=== PATIENT | female | born 1985 | race Caucasian/White ===

== ENCOUNTER → 2017-11-03 | Outpatient (CLI) | payer BC ==
[~2017-11-03] MED LIST: ALLEGRA180 MG PO; ALLEGRA60 M1 PO; AMOXICILLIN500 MG PO; ATIVAN0.5 MG PO; CIPRO250 MG PO; CLARITIN10 MG PO; MEDROL DOSEPAK4 MG PO; MOTRIN PO; MOTRIN800 MG PO; PRILOSEC20 MG PO; PRILOSEC40 MG; PROVENTIL0.09 MG/AC IH; SPIRIVA18 MCG IH; ULTRAM50 MG PO; VICODIN 5/500 505 MG PO; VICODIN 500 MG-1 TAB PO; VICODIN ES 7501 TAB PO; Z PAK PO; ZITHROMAX Z PA250 MG PO; ZOFRAN ODT4 MG SL
[2017-11-03 10:19] LABS: ALBUMIN 3.2 gm/dl (3.1-4.5); ALKALINE PHOSPHATASE 67 U/L (45-117); BUN 9 mg/dl (7-24); CHLORIDE 106 mmol/L (98-107); CREATININE 0.65 mg/dL (0.55-1.02); POTASSIUM 3.6 mmol/L (3.5-5.1); SGOT/AST 19 IU/L (3-35); SGPT/ALT 22 U/L (12-78); SODIUM 141 mmol/L (136-145); TOTAL PROTEIN 6.9 gm/dL (6.4-8.2)
[2017-11-04 12:05] LABS: HEPATITIS B SURFACE AG Negative (Negative); HEPATITIS C VIRUS ANTIBODY <0.1 s/co (0.0-0.9)
== END | disposition home or self-care (01) ==
LOC: LAB 09:29
DX: L71.9 Rosacea, unspecified (principal); M79.1 Myalgia; R53.83 Other fatigue